=== PATIENT | female | born 1970 | race Caucasian/White ===

== ENCOUNTER 2019-10-11 18:46 | Emergency (ER) | payer OTHER, SELFPAY ==
[2019-10-11 18:51] VITALS: BP 184/130; PULSE 92; RESP 18; TEMP 36.7; O2SAT 95; BMI 23.6
--- NOTE | 2019-10-11 18:56 | XR_ITS ---
WS: [id number] NECK SOFT TISSUE TECHNIQUE: 2 views of the soft tissue neck CLINICAL INFORMATION: fb COMPARISON: None. FINDINGS: No visualized radiopaque foreign bodies. Normal prevertebral soft tissues. Straightening of the natan l cervical lordosis with moderate spinal lytic changes. Slight retrolisthesis C5 on C6. XR/XR soft tissue neck [id number] IMPRESSION: No visualized radiopaque foreign bodies.
--- NOTE | 2019-10-11 19:03 | W.ED.GENADLT ---
HPI - General Adult General: Chief complaint: General Medical Stated complaint: fb in throat Time Seen by Provider: 10/11/19 18:53 Source: patient Mode of arrival: ambulatory Limitations: physical limitation History of Present Illness: HPI narrative: 48-year-old female who states she was eating fish roughly 30 to 45 minutes ago. She states she feels like she has a piece of bone stuck in her throat. She states she has been unable to swallow without any pain since then. She has had difficulty tolerated solids. She is able to swallow liquids but states it is painful and difficult. Denies any worsening improving factors. Onset (ago): minute(s) Location: neck Associated symptoms: Deny chest pain, dyspnea, headache(s), nausea, rash or vomiting Review of Systems Const: Denies: fever, chills, body aches or change in appetite Eyes: Denies: blurry vision or eye discomfort ENMT: Denies: throat pain or dental pain Card: Denies: chest pain Resp: Denies: shortness of breath GI: Denies: abdominal pain, nausea, vomiting or diarrhea : Denies: painful urination Musc: Reports: neck pain; Denies: back pain Skin/Breast: Denies: rash Neuro: Denies: headache Psych: Denies: depression Winston/Lymph: Denies: easy bruising All/Imm: Denies: hives PFSH ED PFSH: Social History Smoking and tobacco status: never smoked Physical Exam Const: COMMON NORMALS: no apparent distress, oriented x3 and healthy appearing HENMT: COMMON NORMALS: normocephalic and head/scalp atraumatic HEAD & SCALP: normocephalic and atraumatic Eye: COMMON NORMALS: PERRL and EOMs intact bilaterally PUPIL: Yes PERRL Neck/C-Spine: COMMON NORMALS: full ROM and supple Chest: COMMONS NORMALS: inspection of chest normal and palpation of chest normal Resp: COMMON NORMALS: normal respiratory effort, no retractions, no use of accessory muscles and clear to auscultation bilaterally AUSCULTATION: clear to auscultation bilaterally Cardio: COMMON NORMALS: regular rate, regular rhythm and no murmurs RATE: regular rate RHYTHM: regular rhythm GI: COMMON NORMALS: normal to inspection, nondistended, normoactive bowel sounds, soft to palpation, non-tender and no masses PALPATION: Yes soft Extremity: COMMON NORMALS: normal to inspection and full ROM Neuro: COMMON NORMALS: oriented x3, moves all extremities and no focal motor deficits Psych: COMMON NORMALS: mental status grossly normal, thought process normal and cooperative THOUGHT PROCESS: normal thought process Skin: COMMON NORMALS: no rashes or lesions noted and no wounds GENERAL SKIN EXAM: no rashes or lesions noted Course Vital Signs: Vital signs: Vital Signs Temperature 98.1 F 10/11/19 18:51 Pulse Rate 92 10/11/19 18:51 Respiratory Rate 18 10/11/19 18:51 Blood Pressure 184/130 10/11/19 18:51 Pulse Oximetry 95 10/11/19 18:51 MDM - General Adult MDM Narrative: Medical decision making narrative: Patient presents with possible foreign body in esophagus possibly a fishbone. Patient while here states that she felt like it passed. She drank multiple fluids with no pain and no difficulty swallowing. She is handling solids well. Patient is stable for discharge is to follow-up with primary care doctor in 3 to 5 days return to ER if worsening. Discharge Plan Discharge Patient Disposition: Home, Self-Care Clinical Impression: Esophageal foreign body Qualifiers: Encounter type: initial encounter Qualified Code(s): T18.108A - Unspecified foreign body in esophagus causing other injury, initial encounter Condition: Stable Prescriptions: No Action cetirizine 10 mg Tablet 10 mg PO DAILY RF: 0 Multiple Vitamin, Womens Tablet 1 tab PO DAILY RF: 0 Discharge Orders: Discharge Order (Routine); Ordered 10/11/19 Ordered By: Evan Palencia Referrals: Sajan Armstrong MD [Family Provider] - 4-7 days Discharge Diet: Advance as tolerated Discharge Activity: Resume usual activity Patient Instructions: Foreign Body Ingestion (ED) Coding Level of Care Code ED Tie Presser for Chg Fwd Exam Comprehensive
[2019-10-11 20:44] VITALS: BP 143/100; PULSE 82; RESP 18; O2SAT 96
== END 2019-10-11 20:44 | disposition home or self-care (01) ==
PROVIDERS: Emergency Provider Emergency Medicine; Family Provider Family Medicine
DX: T18.108A Unspecified foreign body in esophagus causing other injury, initial encounter (principal); X58.XXXA Exposure to other specified factors, initial encounter
CPT/HCPCS: 12345; 70360; 96372; 99281; 99283

== ENCOUNTER 2021-04-29 08:29 | Outpatient (CLI) | payer OTHER, SELFPAY ==
--- NOTE | 2021-04-29 08:35 | MM_ITS ---
WS: [id number] BILATERAL DIGITAL SCREENING MAMMOGRAPHY WITH CAD CLINICAL INFORMATION: SCREENING HISTORY: Screening mammogram. Right breast lump COMPARISON: TECHNIQUE: Bilateral CC and MLO views. FINDINGS: 2.5 x 1.8 cm spiculated nodule in the upper outer right breast with associated calcifications. This i s deep to the palpable marker. Associated satellite nodule measuring 0.8 cm. Findings are suspicious for neoplasm and recommend further evaluation with right diagnostic mammography and ultrasound. Promi nent lymph nodes in the right axilla. This can also be further evaluated with ultrasound. Left breast is unchanged and unremarkable. MM/[place] [id number] IMPRESSION: BI-RADS: 0-Incomplete: Need additional imaging evaluation FOLLOW UP: Need Additional Imaging SUSPICIOUS NODULE UPPER OUTER RIGHT BREAST. RECOMMEND FURTHER EVALUATION WITH R IGHT DIAGNOSTIC MAMMOGRAPHY AND ULTRASOUND.
== END 2021-04-29 08:30 | disposition home or self-care (01) ==
LOC: RADSHAW 08:31
PROVIDERS: PCP Family Medicine; Visit Provider Family Medicine
DX: Z12.31 Encounter for screening mammogram for malignant neoplasm of breast (principal)
CPT/HCPCS: 77067

== ENCOUNTER 2021-05-01 09:07 | Outpatient (CLI) | payer OTHER, SELFPAY ==
--- NOTE | 2021-05-01 09:09 | US_ITS ---
WS: [id number] RIGHT DIGITAL MAMMOGRAPHY WITH CAD CLINICAL INFORMATION: RT BREAST NODULE COMPARISON: April 29, 2021 TECHNIQUE: 3 views of the right breast were obtained. FINDINGS: Scattered fibroglandular densities of the right breast. Stable 2.5 x 1.8 cm spiculated nodule in the upper outer quadrant right breast with calcifications. Small associated satellite nodule measuring 1. 8 cm. Findings persist on the spot compression views. Ultrasound is pending. ULTRASOUND BREAST RIGHT TECHNIQUE: Ultrasound right breast focused area of concern. CLINICAL INFORMATION: RT BREAST NODULE FINDINGS: Ultrasound right breast 10:00 position 3 cm from the nipple. Spiculated solid hypoechoic nodule with irregular borders and shadowing corresponds to the mammographic findings. Lesion measures 3.2 x 2.8 x 1.9 cm highly suspicious for neoplasm. Associated vascularity. Additional adjacent abutting satellit e nodule or lobulation measuring 1.3 x 0.8 x 1.9 cm also suspicious for neoplasm. Evaluation of the right axilla demonstrates two slightly enlarged lymph nodes. Hypoechoic slightly en larged lymph node with mild cortical thickening measuring 1.3 x 0.8 x 0.9 cm. Second enlarged lymph node is the most suspicious measuring 1.8 x 1.1 x 1.0 cm with cortical thickeni ng and partial loss of fatty hilum. Additional incidental normal-appearing lymph nodes. US/US breast RT limited* [id number] IMPRESSION: BI-RADS: 5-Highly Suggestive of Malignancy FOLLOW UP: US Guided Biopsy Recommended Recommend ultrasound-guided biopsy of the right breast lesion. Additional biops y of the most abnormal appearing right axillary lymph node could also be perfor med at that time.
== END 2021-05-01 09:08 | disposition home or self-care (01) ==
LOC: RADSHAW 09:07
PROVIDERS: PCP Family Medicine; Visit Provider Family Medicine
DX: N63.11 Unspecified lump in the right breast, upper outer quadrant (principal)
CPT/HCPCS: 76642; 77065

== ENCOUNTER 2022-09-12 07:43 | Oncology outpatient (recurring) (ONCR) | payer OTHER, SELFPAY ==
[2022-09-12 08:19] VITALS: BP 153/99; PULSE 67; RESP 16; TEMP 36.7; O2SAT 99
== END 2022-09-19 23:59 | disposition home or self-care (01) ==
LOC: ONCMED 07:45
PROVIDERS: PCP Family Medicine; Visit Provider Student in an Organized Health Care Education/Training Program
DX: Z45.2 Encounter for adjustment and management of vascular access device (principal); Z95.828 Presence of other vascular implants and grafts
CPT/HCPCS: 96523

== ENCOUNTER 2022-10-10 08:00 | Oncology outpatient (recurring) (ONCR) | payer OTHER, SELFPAY ==
[2022-10-10 08:20] VITALS: BP 166/102; PULSE 93; RESP 16; TEMP 36.4; O2SAT 99
== END 2022-10-19 23:59 | disposition home or self-care (01) ==
LOC: ONCMED 08:01
PROVIDERS: PCP Family Medicine; Visit Provider Student in an Organized Health Care Education/Training Program
DX: Z45.2 Encounter for adjustment and management of vascular access device (principal)
CPT/HCPCS: 96523

== ENCOUNTER 2022-12-12 09:26 | Oncology outpatient (recurring) (ONCR) | payer OTHER, SELFPAY ==
[2022-12-12 09:36] VITALS: BP 141/93; PULSE 95; RESP 18; TEMP 36.3; O2SAT 97
== END 2022-12-19 23:59 | disposition home or self-care (01) ==
LOC: ONCMED 09:27
PROVIDERS: PCP Family Medicine; Visit Provider Student in an Organized Health Care Education/Training Program
DX: Z95.828 Presence of other vascular implants and grafts (principal)
CPT/HCPCS: 96523; J1642

== ENCOUNTER 2023-01-06 10:05 | Oncology outpatient (recurring) (ONCR) | payer OTHER, SELFPAY ==
[2023-01-06 10:10] VITALS: BP 143/90; PULSE 87; RESP 18; TEMP 36.4; O2SAT 99
== END 2023-01-19 23:59 | disposition home or self-care (01) ==
PROVIDERS: PCP Family Medicine; Visit Provider Student in an Organized Health Care Education/Training Program
DX: Z45.2 Encounter for adjustment and management of vascular access device (principal)
CPT/HCPCS: 96523; J1642

== ENCOUNTER 2023-04-06 07:39 | Oncology outpatient (recurring) (ONCR) | payer OTHER, SELFPAY ==
[2023-04-06 07:49] VITALS: BP 164/111; PULSE 73; RESP 16; TEMP 36.5; O2SAT 99
== END 2023-04-21 23:59 | disposition home or self-care (01) ==
PROVIDERS: PCP Family Medicine; Visit Provider Student in an Organized Health Care Education/Training Program
DX: Z45.2 Encounter for adjustment and management of vascular access device (principal)
CPT/HCPCS: 96523; J1642

== ENCOUNTER 2023-06-23 14:27 | Oncology outpatient (recurring) (ONCR) | payer OTHER, SELFPAY ==
[2023-06-23 15:00] VITALS: BP 149/96; PULSE 90; RESP 16; TEMP 36.8; O2SAT 99
== END 2023-07-22 23:59 | disposition home or self-care (01) ==
PROVIDERS: PCP Family Medicine; Visit Provider Student in an Organized Health Care Education/Training Program
DX: Z45.2 Encounter for adjustment and management of vascular access device (principal)
CPT/HCPCS: 96523; J1642

== ENCOUNTER 2023-07-28 15:55 | Oncology outpatient (recurring) (ONCR) | payer OTHER, SELFPAY ==
[2023-07-28 16:23] VITALS: BP 141/100; PULSE 81; RESP 18; TEMP 36.6; O2SAT 98
== END 2023-08-20 23:59 | disposition home or self-care (01) ==
PROVIDERS: PCP Family Medicine; Visit Provider Student in an Organized Health Care Education/Training Program
DX: Z45.2 Encounter for adjustment and management of vascular access device (principal); Z95.828 Presence of other vascular implants and grafts
CPT/HCPCS: J1642

== ENCOUNTER 2023-09-18 08:59 | Oncology outpatient (recurring) (ONCR) | payer OTHER, SELFPAY | END 2023-09-20 23:59 | disposition home or self-care (01) | LOC: ONCMED 08:59 | PROVIDERS: PCP Family Medicine; Visit Provider Student in an Organized Health Care Education/Training Program | DX: Z45.2 Encounter for adjustment and management of vascular access device (principal) | CPT/HCPCS: 96523; J1642 ==

== ENCOUNTER 2023-10-16 07:27 | Oncology outpatient (recurring) (ONCR) | payer OTHER, SELFPAY | END 2023-10-20 23:59 | disposition home or self-care (01) | LOC: ONCMED 07:27 | PROVIDERS: PCP Family Medicine; Visit Provider Student in an Organized Health Care Education/Training Program | DX: Z45.2 Encounter for adjustment and management of vascular access device (principal) | CPT/HCPCS: 96523 ==